=== PATIENT | male | born 1945 | race Caucasian/White ===

== ENCOUNTER → 2020-02-23 | Outpatient (CLI) | payer OTHER ==
--- NOTE | 2020-02-26 18:15 | PF ---
[address] [address] PULMONARY FUNCTION REPORT Name: JIMMY TANNER Wali Room: [facility]#: [id number] Admission: 02/23/20 Attend Phys: Rodger Marrero MD Discharge: Date of : 41 Report #: [id number] THIS REPORT FOR: //name// CC: Rodger Marrero Jose F Garvin DATE OF SERVICE: 02/23/2020 PULMONARY FUNCTION TEST The FEV1/FVC ratio is normal at 74% with a forced vital capacity markedly decreased to only 42%. The FEV1 is also markedly decreased to 43%. The FEF 25-75 is markedly decreased as well to only 43%. The administration of a bronchodilator, there is no significant increase in any of these values. The patient's post-bronchodilator FEV1 is noted to be 1.36 liters. Only a spirometry was performed. IMPRESSION: There is a severe restrictive pattern on spirometry noted. Etiologies include the presence of true restriction, presence of significant underlying obstruction, neuromuscular weakness or poor effort. If clinically indicated, then full pulmonary function tests with lung volumes could be obtained to evaluate further. <ELECTRONICALLY SIGNED> By: Brandyn Newton MD 02/26/20 [id number] Newton MD /nt
== END ==
LOC: M.PUL 02-02 12:14 → M.RAD 02-14 09:30 → M.PUL 02-16 10:30 → M.RAD 02-16 11:00 → M.PUL 09:52
PROVIDERS: ATTEND Orthopaedic Surgery
DX: J61 Pneumoconiosis due to asbestos and other mineral fibers (principal)

== ENCOUNTER → 2021-07-16 | Outpatient (CLI) | payer OTHER | LOC: M.PUL 04-18 11:30 | PROVIDERS: ATTEND Chiropractor | DX: J98.4 Other disorders of lung (principal); J92.0 Pleural plaque with presence of asbestos ==